=== PATIENT | female | born 1950 | race Caucasian/White ===

== ENCOUNTER 2022-07-16 18:23 | Inpatient (IN) | payer OTHER ==
[~2022-07-16] VITALS: Ht 167.6 cm; Wt 82.5 kg
[2022-07-16] MEDS ORDERED: NITROGLYCERIN 2% OINT 1GM PKG TD STA (19:47)
[2022-07-16] MEDS ORDERED: METOPROLOL TARTRATE 1MG/1ML-5ML VIAL IV ONE (20:00)
[2022-07-16] MEDS ORDERED: HEPARIN SODIUM (PORCINE) 5000 UNITS/ML 1ML VIAL IV ONE (20:00)
[2022-07-16] MEDS ORDERED: ASPirin 81 mg TAB PO ONE (20:00)
[2022-07-16] MEDS ORDERED: MORPHINE SULFATE 4 MG/ML SYR/VIAL IV ONE (20:00)
[2022-07-16] MEDS ORDERED: ONDANSETRON HCL 4 MG/2 ML VIAL IV ONE (20:00)
[2022-07-16 20:07] LABS: Basophils # (auto) 0.2 10 ^3/uL (0-0.2); Basophils % (auto) 1.3 % (0.0-2.0); Eosinophils # (auto) 0.1 10 ^3/uL (0-0.8); Eosinophils % (auto) 1.1 % (0.0-7.0); Hemoglobin 14.8 g/dL (12.2-16.2); Lymphocytes # (auto) 3.8 10 ^3/uL (0.4-5.4); Lymphocytes % (auto) 28.8 % (10.0-50.0); Mean Corpuscular Hgb Conc. 33.7 g/dL (32.0-36.0); Mean Corpuscular Volume 86.2 fL (80.0-100.0); Monocytes % (auto) 7.6 % (0.0-12.0); Neutrophils % (auto) 61.2 % (37.0-80.0)
[2022-07-16 20:26] LABS: Albumin 3.3 g/dL (3.4-5.0); Calcium 8.5 mg/dL (8.5-10.1)
[2022-07-16 20:30] LABS: BUN/Creatinine Ratio 5.7; Bilirubin, Total 0.6 mg/dL (0.2-1.0); Total Protein 6.9 g/dL (6.4-8.2)
[2022-07-16 21:09] LABS: Potassium 2.4 mmol/L (3.5-5.1)
[2022-07-16] MEDS ORDERED: METOPROLOL SUCCINATE XL 50 MG TAB PO ONE (21:15)
[2022-07-16] MEDS: POTASSIUM CHL 20MEQ/100ML 100 ML IV SCH ×2 (21:57→23:44)
[2022-07-17] MEDS: MAGNESIUM SULFATE 1GM/100ML 100 ML IV SCH ×4 (00:49→18:15)
[2022-07-17] MEDS ORDERED: ACETAMINOPHEN 325 MG TAB PO PRN (04:00)
[2022-07-17] MEDS ORDERED: TEMAZEPAM 15 MG CAP PO PRN (04:00)
[2022-07-17] MEDS ORDERED: ONDANSETRON HCL 4 MG/2 ML VIAL IV PRN (04:00)
[2022-07-17] MEDS ORDERED: NITROGLYCERIN 0.4 MG SL TAB SL PRN (04:00)
[2022-07-17] MEDS ORDERED: MORPHINE SULFATE INJ 2 MG/ml SYRG IV PRN (04:00)
[2022-07-17] MEDS ORDERED: LOSARTAN POTASSIUM 25 MG TAB PO SCH (10:00)
[2022-07-17] MEDS ORDERED: PANTOPRAZOLE 40 MG TAB PO SCH (10:00)
[2022-07-17] MEDS: ASPirin 81 mg TAB PO SCH (10:43)
[2022-07-17] MEDS: ENOXAPARIN SOD 40 MG/0.4 ML SYRINGE SC SCH (10:43)
[2022-07-17] MEDS: hydrALAZINE HCL 20 MG/ML VL IV PRN ×2 (12:27→20:04)
[2022-07-17 15:28] LABS: BUN/Creatinine Ratio 6.2; Calcium 8.4 mg/dL (8.5-10.1); Magnesium 1.8 mg/dL (1.6-2.6)
[2022-07-17 16:23] LABS: Potassium 2.8 mmol/L (3.5-5.1)
[2022-07-17] MEDS ORDERED: POTASSIUM CHLORIDE 40 MEQ, LIDOCAINE 1% (LOCAL ANESTH.) 4 ML in SODIUM CHL 0.9% 250 ML IV ONE (16:45)
[2022-07-17 19:15] VITALS: BP 154/58
[2022-07-17 19:28] LABS: Cholesterol 282 mg/dL (< 200); Triglycerides 311 mg/dL (< 150)
[2022-07-17 19:30] LABS: HDL Cholesterol 27 mg/dL (40-59); LDL Cholesterol 198 mg/dL (< 100)
[2022-07-17] MEDS: LOSARTAN POTASSIUM 25 MG TAB PO SCH (21:49)
[2022-07-17] MEDS: HCTZ 25 MG TAB PO SCH (21:50)
[2022-07-17 22:00] VITALS: BP 177/70
[2022-07-17] MEDS ORDERED: ATORVASTATIN 20 MG TAB PO SCH (22:00)
[2022-07-18] MEDS: hydrALAZINE HCL 20 MG/ML VL IV PRN ×2 (04:49→15:30)
[2022-07-18 05:00] VITALS: BP 167/64
[2022-07-18 06:24] LABS: Basophils # (auto) 0.2 10 ^3/uL (0-0.2); Basophils % (auto) 1.3 % (0.0-2.0); Eosinophils # (auto) 0.1 10 ^3/uL (0-0.8); Eosinophils % (auto) 0.7 % (0.0-7.0); Hematocrit 44.3 % (36.0-46.0); Hemoglobin 15.1 g/dL (12.2-16.2); Lymphocytes # (auto) 3.3 10 ^3/uL (0.4-5.4); Lymphocytes % (auto) 21.9 % (10.0-50.0); Mean Corpuscular Hemoglobin 29.2 pg (28.0-32.0); Mean Corpuscular Volume 85.7 fL (80.0-100.0); Monocytes # (auto) 1.2 10 ^3/uL (0-1.3); Monocytes % (auto) 7.7 % (0.0-12.0); Neutrophils # (auto) 10.4 10 ^3/uL (1.6-8.6); Neutrophils % (auto) 68.4 % (37.0-80.0); Nucleated Red Blood Cells % 0.1 %; Red Blood Cells 5.17 10^6/uL (4.0-5.20); Red Cell Distribution Width 14.5 % (11.8-14.3); White Blood Cell 15.2 10^3/uL (4.4-10.8)
[2022-07-18 06:36] LABS: BUN/Creatinine Ratio 7.5
[2022-07-18 06:41] LABS: Potassium 2.9 mmol/L (3.5-5.1)
[2022-07-18] MEDS ORDERED: IOHEXOL 350 MG/ML 100ML IJ ONE (08:21)
[2022-07-18] MEDS ORDERED: ATORVASTATIN 20 MG TAB PO SCH (09:45)
[2022-07-18] MEDS: ASPirin 81 mg TAB PO SCH (10:57)
[2022-07-18] MEDS: ENOXAPARIN SOD 40 MG/0.4 ML SYRINGE SC SCH (10:58)
[2022-07-18] MEDS: LOSARTAN POTASSIUM 25 MG TAB PO SCH ×2 (10:59→22:02)
[2022-07-18] MEDS: HCTZ 25 MG TAB PO SCH ×2 (10:59→22:02)
[2022-07-18 12:39] VITALS: BP 148/79
[2022-07-18] MEDS: POTASSIUM CHL 20 Meq TABLET PO SCH ×2 (15:30→22:03)
[2022-07-18] MEDS: POTASSIUM CHL 20MEQ/100ML 100 ML IV SCH ×3 (15:30→20:25)
[2022-07-18 16:30] VITALS: BP 175/68
[2022-07-18] MEDS ORDERED: HYDROcodone-ACET 5/325MG TAB PO PRN (21:45)
[2022-07-18 22:00] VITALS: BP 163/66
[2022-07-18] MEDS: ATORVASTATIN 20 MG TAB PO SCH (22:03)
[2022-07-18 23:00] VITALS: BP 147/67
[2022-07-19] VITALS (19 sets, daily range): BP systolic 121–185; BP diastolic 57–92
[2022-07-19] MEDS: hydrALAZINE HCL 20 MG/ML VL IV PRN ×2 (05:03→15:10)
[2022-07-19 06:18] LABS: Potassium 3.7 mmol/L (3.5-5.1)
[2022-07-19 06:24] LABS: BUN/Creatinine Ratio 13.3; Calcium 8.7 mg/dL (8.5-10.1); Magnesium 2.3 mg/dL (1.6-2.6)
[2022-07-19] MEDS: ASPirin 81 mg TAB PO SCH (09:50)
[2022-07-19] MEDS: LOSARTAN POTASSIUM 25 MG TAB PO SCH ×2 (09:51→21:38)
[2022-07-19] MEDS: ENOXAPARIN SOD 40 MG/0.4 ML SYRINGE SC SCH (09:52)
[2022-07-19] MEDS: HCTZ 25 MG TAB PO SCH ×2 (09:52→21:39)
[2022-07-19] MEDS: NICOTINE 14 MG/24HR TOPICAL PATCH TD SCH (09:53)
[2022-07-19] MEDS ORDERED: MIDAZOLAM HCL 2MG/2ML 2ml VIAL (1mg/ml) ONE (12:39)
[2022-07-19] MEDS ORDERED: FLUMAZENIL 0.1 MG/ML INJ 10ML MDV IV ONE (12:39)
[2022-07-19] MEDS ORDERED: MIDAZOLAM HCL 2MG/2ML 2ml VIAL (1mg/ml) IV ONE (12:45)
[2022-07-19] MEDS ORDERED: LIDOCAINE VISCOUS 2% 15ML UD ONE (12:47)
[2022-07-19] MEDS ORDERED: fentaNYL CITRATE 100 MCG/2 ML VL ONE (13:01)
[2022-07-19] MEDS: ATORVASTATIN 20 MG TAB PO SCH (21:38)
[2022-07-20 05:00] VITALS: BP 145/79
[2022-07-20] MEDS: hydrALAZINE HCL 20 MG/ML VL IV PRN (08:59)
[2022-07-20 09:00] VITALS: BP 178/86
[2022-07-20] MEDS ORDERED: LOS25T PO (09:42)
[2022-07-20] MEDS ORDERED: CLOP75TA70 PO (09:42)
[2022-07-20] MEDS ORDERED: HYDR25TA5 PO (09:42)
[2022-07-20] MEDS ORDERED: ATOR20TA50 PO (09:42)
[2022-07-20] MEDS ORDERED: ASPI-325 PO (09:42)
[2022-07-20] MEDS: LOSARTAN POTASSIUM 25 MG TAB PO SCH (10:05)
[2022-07-20] MEDS: ASPirin 81 mg TAB PO SCH (10:05)
[2022-07-20] MEDS: HCTZ 25 MG TAB PO SCH (10:06)
[2022-07-20] MEDS: ENOXAPARIN SOD 40 MG/0.4 ML SYRINGE SC SCH (10:06)
[2022-07-20] MEDS: NICOTINE 14 MG/24HR TOPICAL PATCH TD SCH (10:07)
[2022-07-20 12:13] VITALS: BP 128/66
[2022-07-20 12:20] VITALS: BP 128/66
== END 2022-07-20 15:40 | disposition home or self-care (01) | DRG 66 ==
LOC: ER 18:23 → EDBD 18:23 → TELE 07-17 03:57 → TELE-CENTR 07-17 18:43
PROVIDERS: ADMIT Nurse Practitioner; ATTEND Hospitalist
PROC: B24BZZ4 Ultrasonography of Heart with Aorta, Transesophageal (ICD-10-PCS; principal; 2022-07-19)
PROC: 5A09357 Assistance with Respiratory Ventilation, Less than 24 Consecutive Hours, Continuous Positive Airway Pressure (ICD-10-PCS; 2022-07-19)
DX: I63.9 Cerebral infarction, unspecified (principal); D72.829 Elevated white blood cell count, unspecified; E11.9 Type 2 diabetes mellitus without complications; E66.9 Obesity, unspecified; I10 Essential (primary) hypertension; E78.5 Hyperlipidemia, unspecified; E87.6 Hypokalemia; F17.210 Nicotine dependence, cigarettes, uncomplicated; I25.2 Old myocardial infarction; Z79.01 Long term (current) use of anticoagulants; Z79.82 Long term (current) use of aspirin; Z79.899 Other long term (current) drug therapy; Z82.0 Family history of epilepsy and other diseases of the nervous system; Z82.49 Family history of ischemic heart disease and other diseases of the circulatory system; Z83.3 Family history of diabetes mellitus; Z86.73 Personal history of transient ischemic attack (TIA), and cerebral infarction without residual deficits; Z90.710 Acquired absence of both cervix and uterus; Z98.61 Coronary angioplasty status; Z68.30 Body mass index [BMI] 30.0-30.9, adult; Z88.0 Allergy status to penicillin; I25.10 Atherosclerotic heart disease of native coronary artery without angina pectoris
CPT/HCPCS: 36415; 70496; 70551; 71045; 80048; 80053; 80061; 83735; 83880; 84132; 84484; 85025; 87426; 93005; 93312; 93886; 96365; 96366; 96367; 96372; 96375; 97110; 97116; 97163; 97530; 99152; G0378; J2001; J2250; J3480

== ENCOUNTER 2024-04-09 11:47 | Emergency (ER) | payer OTHER ==
[~2024-04-09] VITALS: Ht 167.6 cm; Wt 77.0 kg
[~2024-04-09 11:47] MED LIST: ASPI-325 PO; ATOR20TA50 PO; CLOP75TA70 PO; HYDR25TA5 PO; LOS25T PO
[2024-04-09] MEDS: ROCURONIUM 10MG/ML 10ML VIAL IV ONE ×2 (12:00→12:06)
[2024-04-09] MEDS: MIDAZOLAM HCL 5 MG/ML-1ML VIAL ONE (12:00)
[2024-04-09] MEDS: MIDAZOLAM HCL 5 MG/ML-1ML VIAL IV ONE (12:06)
[2024-04-09 12:09] VITALS: BP 161/82; PULSE 130; RESP 18; O2SAT 100
[2024-04-09] MEDS: PROPOFOL 100 ML IV ONE (12:14)
[2024-04-09 12:15] VITALS: PULSE 134; RESP 20; O2SAT 99
[2024-04-09] MEDS: PROPOFOL 100 ML IV SCH (12:15)
[2024-04-09 12:33] LABS: Urine Bacteria None Seen /hpf (None Seen)
[2024-04-09] MEDS: IOHEXOL 300 MG/ML 100ML BOTTLE IJ ONE (12:38)
[2024-04-09 12:43] LABS: Urine Blood Negative /uL (Negative); Urine Clarity Clear (Clear); Urine Color Yellow (Yellow); Urine Hyaline Cast MANY /lpf (0 - 2); Urine Mucus FEW (None Seen); Urine Protein, UAD 1+ (Negative); Urine Specific Gravity 1.023 (1.001-1.035); Urine Urobilinogen Normal (Negative); Urine WBC 2 /hpf (0 - 5)
[2024-04-09 13:02] LABS: Amphetamine Screen, Urine Neg (NEGATIVE); Barbiturate Scree,Urine Neg (NEGATIVE); Benzodiazephine Screen, Urine Pos (NEGATIVE); Cannabinoid Screen, Urine Neg (NEGATIVE); Cocaine Screen, Urine Neg (NEGATIVE); Opiate Scree,Urine Neg (NEGATIVE); Phencyclidine Screen, Urine Neg (NEGATIVE)
[2024-04-09 13:17] LABS: Base Excess -2.6 mmol/L (-2.0-2.0)
[2024-04-09 13:48] LABS: Chloride 100 mmol/L (98-107); Sodium 135 mmol/L (136-145)
[2024-04-09 13:50] LABS: Calcium 9.7 mg/dL (8.7-10.4)
[2024-04-09 13:54] LABS: Glucose 272 mg/dL (74-106)
[2024-04-09 13:55] LABS: Blood Urea Nitrogen 16 mg/dL (9-23); Lipase 57 U/L (12-53)
[2024-04-09 14:09] LABS: Carbon Dioxide 24 mmol/L (20-30)
[2024-04-09 14:12] LABS: Basophils # (auto) 0.1 10 ^3/uL (0-0.2); Basophils % (auto) 0.4 % (0.0-2.0); Eosinophils # (auto) 0 10 ^3/uL (0-0.8); Hematocrit 42.9 % (36.0-46.0); Hemoglobin 14.2 g/dL (12.2-16.2); Lymphocytes # (auto) 0.8 10 ^3/uL (0.4-5.4); Lymphocytes % (auto) 4.1 % (10.0-50.0); Mean Corpuscular Hemoglobin 28.7 pg (28.0-32.0); Mean Corpuscular Hgb Conc. 33.1 g/dL (32.0-36.0); Mean Corpuscular Volume 86.6 fL (80.0-100.0); Monocytes % (auto) 5.1 % (0.0-12.0); Neutrophils # (auto) 16.9 10 ^3/uL (1.6-8.6); Neutrophils % (auto) 90.4 % (37.0-80.0); Nucleated Red Blood Cells % 0.2 %; Red Blood Cells 4.95 10^6/uL (4.0-5.20); White Blood Cell 18.6 10^3/uL (4.4-10.8)
[2024-04-09 14:16] LABS: Anion Gap 11 (5-15)
[2024-04-09] MEDS: LABETALOL HCL 5 MG/ML 4ML SYRINGE IV ONE (14:21)
[2024-04-09 14:24] LABS: Lactic Acid w/Reflex 5.1 mmol/L (0.4-2.0)
[2024-04-09] MEDS: levETIRAcetam 1000 mg/100ml 100 ML IV ONE (14:30)
[2024-04-09 14:35] VITALS: BP 189/89; PULSE 82; RESP 18; O2SAT 99
[2024-04-09 16:19] VITALS: TEMP 99.1
[2024-04-09 16:21] VITALS: BP 192/70; PULSE 89; RESP 18; O2SAT 99
[2024-04-09 16:30] VITALS: BP 150/74; PULSE 91; RESP 18; O2SAT 100
[2024-04-09 17:19] LABS: INR 1.22 (0.9-1.15); Prothrombin Time 12.7 sec (9.3-11.8)
== END 2024-04-09 13:51 | disposition short-term general hospital (02) ==
LOC: EDUNIT# 11:47 → EDBD 11:47 → ER 11:47
DX: R56.9 Unspecified convulsions (principal); C79.31 Secondary malignant neoplasm of brain; C80.1 Malignant (primary) neoplasm, unspecified; R41.82 Altered mental status, unspecified; E11.9 Type 2 diabetes mellitus without complications; I10 Essential (primary) hypertension; I25.2 Old myocardial infarction; Z88.0 Allergy status to penicillin; Z79.899 Other long term (current) drug therapy; Z79.01 Long term (current) use of anticoagulants
CPT/HCPCS: 31500; 36415; 36600; 70450; 71045; 71260; 72125; 74177; 80048; 80307; 81001; 82805; 83605; 83690; 84484; 85025; 85610; 87070; 87086; 87205; 96365; 96375; 99291; J1953; J2250; J2704; J3490; Q9967; 94002